=== PATIENT | male | born 1945 | race Asian ===

== ENCOUNTER 2023-12-24 09:52 | Emergency (ER) | payer MEDICARE, OTHER ==
[~2023-12-24] VITALS: Ht 157.5 cm; Wt 56.8 kg
[2023-12-24 10:04] VITALS: TEMP 98.8
[2023-12-24] MEDS: ONDANSETRON HCL 4 MG/2 ML VIAL IVP ONE (10:19)
[2023-12-24 10:21] LABS: BASOPHILS % (AUTO) 0.4 % (0.0-2.0); EOSINOPHILS % (AUTO) 0.6 % (1.0-6.0); HEMATOCRIT 38.6 % (41-53); HEMOGLOBIN 12.9 g/dL (13.5-17.5); LYMPHOCYTES % (AUTO) 13.6 % (22.0-44.0); MEAN CORPUSCULAR HEMOGLOBIN 34.7 pg (26.0-34.0); MEAN CORPUSCULAR HGB CONC 33.3 G/dL (31.0-37.0); MEAN CORPUSCULAR VOLUME 104 fL (80-100); MONOCYTES # (AUTO) 0.4 K/uL (0.1-1.0); MONOCYTES % (AUTO) 5.6 % (2.0-9.0); NEUTROPHILS # (AUTO) 5.7 K/uL (1.8-7.7); NEUTROPHILS % (AUTO) 79.8 % (40.0-70.0); PLATELET COUNT (AUTO) 245 K/uL (150-450); RED CELL DISTRIBUTION WIDTH 13.7 % (11.5-14.5); WHITE BLOOD COUNT (AUTO) 7.2 K/uL (4.5-11.0)
[2023-12-24 10:29] LABS: CALCIUM, TOTAL 8.8 mg/dL (8.8-10.5); CREATININE 1.26 mg/dL (0.60-1.30); POTASSIUM 4.7 mmol/L (3.5-5.1)
[2023-12-24 10:33] LABS: INR 1.1 (0.9-1.1); PROTHROMBIN TIME 11.2 SEC (9.4-11.6)
[2023-12-24 10:36] LABS: ALBUMIN 3.4 g/dL (3.4-5.0); BILIRUBIN,TOTAL 0.7 mg/dL (0.1-1.0); TOTAL PROTEIN, SERUM 6.5 g/dL (6.4-8.2)
[2023-12-24 10:37] LABS: TROPONIN I-HIGH SENSITIVITY 15 ng/L (<76)
[2023-12-24 10:50] VITALS: BP 127/73; PULSE 65; RESP 18
[2023-12-24] MEDS ORDERED: BUPR450F2 PO (10:50)
[2023-12-24] MEDS ORDERED: LOSA-382 PO (10:50)
[2023-12-24] MEDS ORDERED: RANO500T27 PO (10:50)
[2023-12-24] MEDS ORDERED: METF-1211 PO (10:50)
[2023-12-24] MEDS ORDERED: DICL100G60 TP (10:50)
[2023-12-24] MEDS ORDERED: MONT-35 PO (10:50)
[2023-12-24] MEDS ORDERED: SACU1TAB PO (10:50)
[2023-12-24] MEDS ORDERED: CARV25 PO (10:50)
[2023-12-24] MEDS ORDERED: FINA-27 PO (10:50)
[2023-12-24] MEDS ORDERED: TAMS0.4C94 PO (10:50)
[2023-12-24] MEDS ORDERED: HYDR-4769 PO (10:50)
[2023-12-24] MEDS ORDERED: TRAM50TA5 PO (10:50)
[2023-12-24] MEDS ORDERED: HYDR25TA2 PO (10:50)
[2023-12-24] MEDS ORDERED: GABA-1181 PO (10:50)
[2023-12-24] MEDS ORDERED: ATOR40TA28 PO (10:50)
[2023-12-24] MEDS ORDERED: APIX5TAB PO (10:50)
[2023-12-24] MEDS ORDERED: PANT-31 PO (10:50)
[2023-12-24] MEDS ORDERED: AMLO-257 PO (10:50)
[2023-12-24] MEDS ORDERED: TERA2CAP10 PO (10:50)
[2023-12-24] MEDS ORDERED: DAPA10TA PO (10:50)
[2023-12-24] MEDS ORDERED: SITA100 PO (10:50)
[2023-12-24] MEDS: SODIUM CHLORIDE 0.9% 1,000 ML IV ONE (11:16)
[2023-12-24 11:40] LABS: TROPONIN I-HIGH SENSITIVITY 13 ng/L (<76)
[2023-12-24] MEDS ORDERED: DEXTROSE 50%-WATER 25 GM/50 ML SYRINGE IVP PRN (12:00)
[2023-12-24] MEDS ORDERED: INSULIN LISPRO 100 UNITS/ML SQ PRN (12:00)
[2023-12-24] MEDS ORDERED: ONDANSETRON HCL 4 MG/2 ML VIAL IVP PRN (12:15)
[2023-12-24] MEDS ORDERED: SODIUM CHLORIDE 0.9% 500 ML IV ONE (12:15)
[2023-12-24] MEDS ORDERED: MAGNESIUM HYDROXIDE SUSPENSION 30 ML UDCUP PO PRN (12:15)
[2023-12-24] MEDS ORDERED: PANTOPRAZOLE SODIUM 40 MG/VIAL IVP SCH (12:15)
[2023-12-24] MEDS ORDERED: ACETAMINOPHEN 325 MG TABLET PO PRN (12:15)
[2023-12-24] MEDS ORDERED: APIXABAN 5 MG TABLET PO SCH (21:00)
== END 2023-12-24 12:37 | disposition left against medical advice (07) ==
LOC: EMS 09:54
DX: E86.0 Dehydration (principal); R55 Syncope and collapse; E11.9 Type 2 diabetes mellitus without complications; I11.0 Hypertensive heart disease with heart failure; I50.9 Heart failure, unspecified; Z88.0 Allergy status to penicillin; Z98.890 Other specified postprocedural states
CPT/HCPCS: 99285; 96374; 70450; 71045; 96361; 80053; 82550; 82962; 83880; 84484; 85025; 85610; 85730; 36415; 93005; J2405; J7030; C9113